=== PATIENT | female | born 1960 | race Caucasian/White ===

== ENCOUNTER 2023-01-14 06:19 | Observation (INO) ==
--- NOTE | 2022-12-16 14:20 | PAT Medication Instructions ---
Medication Instructions Date of Service December 16, 2022 Home Medications amlodipine 2.5 mg tablet 2.5 mg PO QAM amlodipine 5 mg tablet 5 mg PO QAM capsaicin 0.1 % topical cream 1 applic topical TID PRN Skin Irritation clotrimazole 1 % topical cream 1 applic topical BID PRN Skin Irritation d-mannose 500 mg capsule 1,000 mg PO QAM d-mannose 500 mg capsule 500 mg PO QPM diclofenac sodium 1 % topical gel 2 g topical TID PRN Pain fluticasone propionate 50 mcg/actuation nasal spray,suspension 1 spray intranasal BID levothyroxine 150 mcg tablet 150 mcg PO DAILYBB lorazepam 1 mg tablet 0.5 mg PO QAM lorazepam 1 mg tablet 1 mg PO QPM losartan 100 mg tablet 100 mg PO QAM omeprazole 20 mg capsule,delayed release 20 mg PO QAM sennosides 8.6 mg-docusate sodium 50 mg tablet 2 tab-cap PO BID sertraline 100 mg tablet 100 mg PO QPM tramadol 50 mg tablet 50 mg PO DAILY PRN Pain Continue as directed capsaicin 0.1 % topical cream 1 applic topical TID PRN Skin Irritation (do not use AM of surgery or on surgical area after cleansing) clotrimazole 1 % topical cream 1 applic topical BID PRN Skin Irritation (do not use AM of surgery or on surgical area after cleansing) diclofenac sodium 1 % topical gel 2 g topical TID PRN Pain (do not use AM of surgery or on surgical area after cleansing) DO NOT take the morning of surgery losartan 100 mg tablet 100 mg PO QAM d-mannose 500 mg capsule 1,000 mg PO QAM sennosides 8.6 mg-docusate sodium 50 mg tablet 2 tab-cap PO BID Take morning of surgery With a small sip of water, OTHERWISE NOTHING TO EAT OR DRINK AFTER MIDNIGHT: amlodipine 2.5 mg tablet 2.5 mg PO QAM amlodipine 5 mg tablet 5 mg PO QAM tramadol 50 mg tablet 50 mg PO DAILY PRN Pain (if needed) levothyroxine 150 mcg tablet 150 mcg PO DAILY lorazepam 1 mg tablet 0.5 mg PO QAM omeprazole 20 mg capsule,delayed release 20 mg PO QAM fluticasone propionate 50 mcg/actuation nasal spray,suspension 1 spray intranasal BID Take evening before surgery sertraline 100 mg tablet 100 mg PO QPM lorazepam 1 mg tablet 1 mg PO QPM d-mannose 500 mg capsule 500 mg PO QPM tramadol 50 mg tablet 50 mg PO DAILY PRN Pain (if needed) fluticasone propionate 50 mcg/actuation nasal spray,suspension 1 spray intranasal BID Other Notes If you have any questions please call us at [phone] or [phone] or [phone] or [phone]
--- NOTE | 2022-12-23 13:33 | Anesthesiology Consultation ---
Date of Service December 23, 2022 Assessment & Plan (1) Encounter for pre-operative examination: - awaiting PCP clearance. - occasional non-productive cough since COVID 09/2022. Pt also reports chronic dysphagia and occasional choking. Pt reports upcoming PCP pre-op appointment. Optimization note completed. COVID PCR test 12/23/22 positive, pt will not need tested am DOS unless she develops symptoms or has known COVID exposure. Pt aware. - Outpatient joint assessment: Patient is currently scheduled for inpatient pathway. If re-evaluated pending system levels during current pandemic/surgeon requests outpatient pathway, patient is not recommended candidate for outpatient joint program from anesthesia standpoint. Chart Review Chart Review: Pending: Refer to Additional Notes / Consult section and Patient seen in Pre Admission Testing Teaching & Discussion Pre-Anesthesia Teaching/Discussion Notes: Instructed NPO after midnight before surgery, except medications with 15 cc of water. Medication instructions provided according to the PAT guidelines. History Surgery Operation Date: 01/14/23 07:00 Proposed Procedures p Right Total Knee Arthroplasty - George Garcia MD Height/Weight Height: 5 ft 6 in Weight: 142.882 kg Allergies Allergy/AdvReac Type Severity Reaction Status Date / Time ciprofloxacin [From Cipro] Allergy Severe n/v Verified 12/13/22 10:38 nitrofurantoin Allergy Mild n/v Verified 12/13/22 10:38 Sulfa (Sulfonamide Allergy Mild Hives Verified 12/13/22 10:38 Antibiotics) sulfamethoxazole [Bactrim] Allergy Mild Hives Verified 12/13/22 10:38 trimethoprim Allergy Mild Hives Verified 12/13/22 10:38 Bactrim Allergy Unknown . Verified 11/27/12 20:06 Medications Home Medications Medication Instructions Recorded Confirmed Last Taken amlodipine 2.5 mg tablet 2.5 mg PO QAM 12/13/22 12/13/22 Unknown amlodipine 5 mg tablet 5 mg PO QAM 12/13/22 12/13/22 Unknown capsaicin 0.1 % topical cream 1 applic topical TID PRN Skin 12/13/22 12/13/22 Unknown Irritation clotrimazole 1 % topical cream 1 applic topical BID PRN Skin 12/13/22 12/13/22 Unknown Irritation d-mannose 500 mg capsule 1,000 mg PO QAM 12/13/22 12/13/22 Unknown d-mannose 500 mg capsule 500 mg PO QPM 12/13/22 12/13/22 Unknown diclofenac sodium 1 % topical gel 2 g topical TID PRN Pain 12/13/22 12/13/22 Unknown fluticasone propionate 50 1 spray intranasal BID 12/13/22 12/13/22 Unknown mcg/actuation nasal spray,suspension levothyroxine 150 mcg tablet 150 mcg PO DAILYBB 12/13/22 12/13/22 Unknown lorazepam 1 mg tablet 0.5 mg PO QAM 12/13/22 12/13/22 Unknown lorazepam 1 mg tablet 1 mg PO QPM 12/13/22 12/13/22 Unknown losartan 100 mg tablet 100 mg PO QAM 12/13/22 12/13/22 Unknown omeprazole 20 mg capsule,delayed 20 mg PO QAM 12/13/22 12/13/22 Unknown release sennosides 8.6 mg-docusate sodium 2 tab-cap PO BID 12/13/22 12/13/22 Unknown 50 mg tablet sertraline 100 mg tablet 100 mg PO QPM 12/13/22 12/13/22 Unknown tramadol 50 mg tablet 50 mg PO DAILY PRN Pain 12/13/22 12/13/22 Unknown Past Medical History Medical History (Updated 12/23/22 @ 13:37 by Katya Briscoe PA-C) Anxiety Borderline diabetes monitoring Chronic kidney disease stage 3A Constipation due to slow transit Depression Dysphagia occasional - no surgical intervention-occ choking Fatty liver GERD (gastroesophageal reflux disease) controlled, stable per pt Hiatal hernia History of COVID-19 10/20/22 (home test positive) - sinus congestion/fever/cough > symptoms resolved except occasional residual mild cough History of motion sickness Hx of hemorrhoids Hypertension controlled, stable per pt Hypothyroidism Sinus bradycardia hx while sleeping (found during a hospital stay) Patient denies h/o stroke, seizures, heart attack, heart failure, blood clots or blood transfusions. Exercise / Class Metabolic Activity III < 4 Walking/Shop/Light housework (denies chest discomfort or shortness of breath with usual activities) Past Family History Family History Brother FHx: colon cancer, Onset Age: 50 Mother FHx: uterine cancer, Onset Age: 30 FHx: leukemia FHx: rheumatoid arthritis Other No family history of adverse response to anesthesia Past Surgical History Surgical History (Updated 12/23/22 @ 13:38 by Katya Briscoe PA-C) History of cholecystectomy History of colonoscopy History of endometrial biopsy with sedation (benign) History of esophagogastroduodenoscopy (EGD) Nausea and vomiting after administration of anesthetic agent denies needing scop patch Past Anesthesia History No Hx of Anesthesia Complications and No Family Hx of Anesthesia Complications History of PONV History of PONV (denies needing scop patch) and Hx of Motion Sickness Social History Smoking Status: Never smoker Do You Dip or Chew Tobacco: No Hx Alcohol Use: No Hx Substance Use: No substance use type: does not use Review of Systems Snoring, denies witnessed apneas. Patient denies chest pain, shortness of breath, dyspnea on exertion, fever, chills, cough, wheezing, or palpitations. Physical Exam Vital Signs Vitals BP 140/92 P 76 TEMP 97.9 SP02 96% on RA RESP 17 Physical Full cervical extension range of motion without pain TMD 3.5 finger breadths Mallampati Score 2 Dentition: intact, denies Lungs: normal respiratory effort. Clear throughout to auscultation, no adventitious breath sounds Cardiac: regular rate and rhythm, no murmurs noted Carotid arteries: negative bruit bilat Lab Results Anesthesia Preop Results Results Anesthesia Widget: WBC 8.52 K/ul (4.8-10.8) 12/23/22 Hgb 13.4 g/dl (12.0-16.0) 12/23/22 Hct 41.2 % (37.0-47.0) 12/23/22 Plt 233 K/uL (130-400) 12/23/22 Na 142 mmol/L (136-145) 12/23/22 K 4.2 mmol/L (3.5-5.1) 12/23/22 Cl 108 mmol/L (98-107) H 12/23/22 CO2 29 mmol/L (21-32) 12/23/22 BUN 20 mg/dl (6-23) 12/23/22 Creat 0.98 mg/dl (0.6-1.2) 12/23/22 Glucose Level 105 mg/dl (70-99(Fasting)) H 12/23/22 PT 10.2 Seconds (9.0-12.0) 12/23/22 PTT 28.4 Seconds (21.0-31.0) 12/23/22 INR 1.0 (0.9-1.1) 12/23/22 HA1c 5.7 % (4.5-5.6) H 12/23/22 COVID-19 PCR POSITIVE (Negative) A* 12/23/22 Blood Type B Positive 12/23/22 Antibody Screen NEGATIVE 12/23/22 Testing Electrocardiogram Date: 12/23/22 NSR, rate [address] abnormality Chest X-Ray Date: 12/23/22 Moderate enlargement of the cardiac silhouette. No pneumothorax, large pleural effusion, airspace consolidation or overt pulmonary edema. Mild subsegmental bibasilar atelectasis. Degenerative changes of the shoulders and spine. IMPRESSION: No acute process. Echocardiogram Date: 06/24/18 EF 65-69% Moderate cLVH No LV segmental wall motion abnormalities Grade II diastolic dysfunction LA moderately enlarged RA mildly enlarged COVID-19 Risk Screen Screening Information COVID-19 Screen Date: 12/23/22 Exposure 21 Days Family/Household +COVID Last 21 Days: No Exposure 10 Days Any COVID Exposure Last 10 Days: No Symptoms Last 10 Days Experienced COVID Sx Last 10 Days: No + COVID 0-90 Days COVID + in Last 0-90 Days: Yes + COVID Test 0-10 Day: Yes +Covid 0-90 Day Pathway: Validate type of COVID-19 test (must secure test results for patient chart) * The patients test result MUST be a NAAT (i.e., molecular test not an antigen test). * NO other COVID-19 testing needed pre-op or day of surgery inside the 90 day window if prior positive test is acceptable per hospital Policy. Note: Home tests or antigen tests are NOT accepted per hospital policy. Provider to place an order for a ASHLEY (i.e., molecular test not an antigen test). Then proceed to the appropriate pathway based on the testing results. Elective Case +COVID-19 in the last 0-10 Days * Cancel/reschedule using Policy 1096. * Reschedule procedure 11 days if asymptomatic. * Reschedule procedure 15 days if mild symptoms. * Reschedule procedure 21 days if moderate to severe symptoms. Elective Case +COVID-19 in the last 11-90 Days * Proceed with procedure according to Policy 1096 * Reschedule procedure 11 days if asymptomatic. * Reschedule procedure 15 days if mild symptoms. * Reschedule procedure 21 days if moderate to severe symptoms. Urgent or Emergent Case * Provider will provide medical necessity statement in the H&P and patient will be scheduled on the (+) COVID/PUI pathway per hospital policy. Policies and Procedures Refer to Policy and Procedure 1096 for Initiation & Discontinuation of Transmission-Based Precautions for Confirmed and Suspected SARS-CoV-2 Infection which can be found on the Intranet in the Clinical Resources Manual by clicking on the link below: [email or web address] [email or web address]#search=discontinuation%20of%20Transmission%2D Based
--- NOTE | 2023-01-10 18:31 | History and Physical Report ---
DATE OF ADMISSION: 01/14/2023 CHIEF COMPLAINT: Bilateral knee pain and discomfort, right side greater than left. HISTORY OF PRESENT ILLNESS: The patient is a 62-year-old female who presents for surgical treatment of her right knee. She has a long history of bilateral knee pain and discomfort that has gradually g henri worse over time. It has been treated at [facility] with cortisone shots, which helped initially , but became less successful over time. She had a gel shot, which did not help at all. She tried cr yoablation at the [facility], which also did not help. Pain has gradually gotten worse ov er time. She resorted to using a cane to get around. She would now like to proceed with surgical tr eatment. She has attempted weight loss without much success. PAST MEDICAL HISTORY: 1. Prediabetes with an A1c of 5.7. 2. Hypothyroidism. 3. Depression. 4. Hypertension. 5. Obesity with BMI of 54.4. PAST SURGICAL HISTORY: Includes cholecystectomy. ALLERGIES: SULFA. CURRENT MEDICATIONS: 1. Lorazepam. 2. Fluticasone. 3. Zantac. 4. Sertraline. 5. Norvasc. 6. Omeprazole. 7. Losartan. 8. Diclofenac. 9. Levothyroxine. 10. Viactiv. SOCIAL HISTORY: A 62-year-old female. She is . She is from [place]. Does not smoke. FAMILY HISTORY: Significant for heart disease, blood clots, colon cancer, uterine cancer, leukemia, lung cancer. REVIEW OF SYSTEMS: Significant for obesity. No current chest pain or shortness of breath. No histo ry of DVT or PE. No known bleeding problems. PHYSICAL EXAMINATION: GENERAL: Shows a pleasant, large female. HEENT: Benign. NECK: Supple. No lymphadenopathy. LUNGS: Clear to auscultation. HEART: Regular rate and rhythm. ABDOMEN: Soft, nontender, nondistended. EXTREMITIES: Grossly neurovascularly intact except as follows: Examination of both knees revealed patient ambulates with use of a cane. Examination of the right knee reveals a large soft tissue envelope. She has got varus alignment to h er knee. Range of motion is 5-10 degrees short of full extension and 105 degrees of flexion. No ins tability. No pain with hip motion. Examination of the left knee reveals varus alignment. Large soft tissue envelope. Small knee effusi on. Range of motion 5-120. No instability. X-RAYS: X-rays of both knees were reviewed. X-rays show advanced bilateral knee DJD. She has compl ete loss of her medial joint space. She has got subchondral sclerosis and cystic changes primarily m edially. Mild diffuse osteopenia ____ the left. ASSESSMENT: A 62-year-old female with multiple medical comorbidities including depression, hypertens ion, morbid obesity, hypothyroidism and prediabetes with advanced bilateral knee degenerative joint d isease. She has failed conservative measures. She has been attempting weight loss without much succ ess. PLAN: We are going to proceed with right knee replacement. Risks and benefits of this procedure wer e explained to the patient in depth, and she understands. She knows that at her weight, she is at in creased risk for infection, thrombosis, and failure of the implants as well as . The patient un derstands and would like to proceed. We are going to proceed with right knee replacement. We will probably put some degree of stem in he r tibia due to her large size and deformity to maximize her tibial fixation. Job ID: [id number]
[~2023-01-14 06:19] MED LIST: ACETAMINOPHEN 500 MG TAB PO SCH; ALLERGY Noted to ORDERED Medication SCH; BUPIVACAINE LIPOSOME/PF 266 MG, BUPIVACAINE/EPINEPHRINE 50 ML, SODIUM CHLORIDE 0.9% PF ... INFIL SCH; DEXAMETHASONE SOD INJ 4 MG/ML VIAL IV SCH; FAMOTIDINE 20 MG TAB PO SCH; LR 500ML BOLUS, THEN 15ML/HR IV SCH; LR 60ML/HR IV SCH; Scopolamine 1 MG TDSY TD SCH; TRANEXAMIC ACID 1,000 MG **IV Intra-op IV SCH
[2023-01-14] MEDS ORDERED: BUPIVACAINE 0.25% PF 30 ML VIAL ONE (06:33)
[2023-01-14] MEDS ORDERED: BUPIVACAINE 0.5 % 5 MG/1 ML PF 10ML VIAL ONE (06:33)
--- NOTE | 2023-01-14 06:58 | History & Physical Bridge Note ---
Date of Service January 14, 2023 History & Physical Bridge Note I have examined the patient, reviewed the History & Physical and in the interval since the performance of the History & Physical I have noted the following changes of clinical significance: no changes noted
[2023-01-14] MEDS ORDERED: KETAMINE 50 MG/5 ML SYRINGE ONE (08:12)
[2023-01-14] MEDS ORDERED: PROPOFOL IV EMULSION 10 MG/ML 100 ML VIAL IV ONE (08:12)
[2023-01-14] MEDS ORDERED: MIDAZOLAM HCL 1 MG/ML 2ML VIAL ONE (08:29)
[2023-01-14] MEDS ORDERED: VANCOMYCIN HCL 1000MG/20ML VIAL ONE (08:39)
[2023-01-14] MEDS ORDERED: BUPIVACAINE/EPINEPHRINE 0.25% 1:200,000 30 ML VIAL ONE (08:40)
[2023-01-14] MEDS ORDERED: BUPIVACAINE LIPOSOME 1.3% 266 MG/20 ML VIAL ONE (08:40)
[2023-01-14] MEDS ORDERED: SODIUM CHLORIDE 0.9% PF 50 ML VIAL ONE (08:41)
[2023-01-14] MEDS ORDERED: DEXAMETHASONE SOD INJ 4 MG/ML VIAL ONE (09:07)
--- NOTE | 2023-01-14 10:59 | Operative Report ---
PG Post Operative Report Pre & Post Diagnosis Operation Date: 01/14/23 08:50 Pre-Op Diagnosis: Right Knee Degenerative Joint Disease Post-Op Diagnosis: Right Knee Degenerative Joint Disease I identified the patient and participated in the time-out.: Yes Procedure Operation Date: 01/14/23 08:50 Actual Procedures p Right Total Knee Arthroplasty(Right) - George Garcia MD Surgeon George Garcia MD Textile Machine Operator Khadar Hammer PA-C Estimated Blood Loss 50 Findings Consistent with Post-Op Diagnosis Operative findings reveal advanced right knee DJD with extensive grade 4 [id number] disease of the anteromedial compartment and the patellofemoral compartments. The lateral compartment was pretty well spared. Moderate-sized joint effusion. Osteophytes primarily medially and in the patellofemoral compartment. Large soft tissue envelope. Specimens Right knee sent for pathology Anesthesia Type Spinal MAC Complications none Disposition Accompanied Patient To Recovery: No Indications Patient is a 62-year-old morbidly obese female whose had a several year history of increasing bilateral knee pain discomfort. She been through extensive conservative treatment which became less successful over time. X-rays show advanced bilateral knee arthritis. She elected proceed with total knee arthroplasty. Due to her large size and significant medial deformity we did place a cemented stem in the tibia. Description of Procedure Operative implants consist of: 1. Biomet Vanguard size 67.5 right posterior stabilized femoral component. 2. Biomet size 71 tibial tray with a cemented 12.5 mm x 80 mm stem. 3. 10 mm posterior stabilized polyethylene insert. 4. 31 mm all poly patella. The patient was taken the operating, identified, and placed on the operating t able supine position protectors were properly padded. IV antibiotics tried by anesthesia team. A spinal anesthetic and abductor canal block had been provided in the holding area. Navarro catheter was placed in sterile fashion. Right thigh tent was then placed in the right lower extremities then prepped and draped in usual sterile fashion. The right leg was elevated exsanguinated with use of an Esmarch and the tourniquet placed at 300 mmHg. An anterior pressure of the right knee was then performed to longitudinal incision centered over the patella. Sharp dissection was carried through subcutaneous tissue down the extensor mechanism. A medial parapatellar arthrotomy incision was made. Some subperiosteal dissection was carried out medially. Fat pad was resected from Neath patella tendon. The lateral patellofemoral ligament was released. Patella subluxated laterally and the knee was flexed. The osteophytes taken off distal femur. The ACL and PCL were then released from distal femur the tibia subluxated anteriorly. The tibia was then entered after shaving the intercondylar eminence off with a saw. The canal finder was placed. I then used the long IM kelton to place down the tibia. The IM cutting guide was placed to take 2 mm off the most deficient aspect medial tibial plateau. The tibia was then sized to a size 71. Was prepared for a 12.5 mm stem. We did overreamed this to allow for cement mantle. The trial tibial tray was assembled and placed and fit nicely. Attention drawn to the femur. The distal femur was entered with a sharp drop with intramedullary canal was suction. A right 5 degree valgus cutting guide was placed. Distal femoral cutting block was pinned in place. Distal femoral cut was made to take an additional 3 mm bone off distal femur. The femur was then sized to a size 67.5. The AP cutting block was pinned parallel to the epicondylar axis which was 4 degrees of external rotation. Anterior cut, anterior chamfer, posterior cut, posterior chamfer cuts were made. The box cutting guide was placed in just slight lateral and the box cut was made. The knee was flexed. The remnants of the medial and lateral menisci were excised. The osteophytes were taken off the posterior aspect the femur. Trial femoral component was placed for the tibial tray was already in place. I then trialed the knee and the 10 mm insert fit most appropriately. Attention drawn the patella. The patella was cleaned of all soft tissues. Patella thickness measured 22 mm in thickness and was cut down to 13. It was sized to a size 31 patella. The lug holes were drilled for 31 patella. Lateral osteophytes removed. Patella button was placed. Knee was taken through range of motion patella tracked nicely with no thumbs test. Attention drawn to placing permanent components. All trial components were removed. Bone plug was placed into the distal femur limit blood loss. Double batch Palacos G cement was mixed. I did add an additional gram of vancomycin due to her large size/BMI and history of diabetes. A Biomet Indiceeguard size 67.5 right posterior stabilized femoral component, a size 71 tray with a 12.5 mm x 80 mm stem, a 10 mm posterior stabilized polyethylene insert, and a 31 x 8 all Paller patella then cemented in place. Knee was brought out in full extension till cement hardened. Final cement check was then performed. The pericapsular tissues were injected with total 100 cc of combination of 20 cc of Exparel, 30 cc normal saline, 50 cc of quarter percent Marcaine with epinephrine. Patient did receive 1 g tranexamic acid. The tourniquet was then let down for final turn time 65 minutes. Hemostasis assured with electrocautery. Extensor mechanism closed with combination 1 PDS suture #1 Vicryl suture in a [id number] fashion. Extensor mechanism checked found be intact with subcutaneous tissue then closed with 2 Dexon suture in buried interrupted fashion skin was closed skin vincenzo. Leg was then cleaned and dried and sterile dressed with Xeroform, 4 fours, sterile cast padding, Jose bandage were applied. Patient then transferred to the recovery room in stable condition. Patient tolerated procedure well and there were no complications. Khadar Hammer, my physician mortgage loan assistant, was present for the entire procedure. His assistance was essential and required for appropriate patient positioning, prepping and draping, surgical exposure, performing the technical details of the operation, placement the implants, closure of the wound, and placement of the sterile bandage. I attest to the content of the Intraoperative Record and any orders documented therein. Any exceptions are noted below.
--- NOTE | 2023-01-14 11:22 | XRay Report ---
XR knee RT 1 or 2V routine HISTORY: 62 years-old Female Surgical Post Op right knee arthroplasty COMPARISON: Knee radiographs 12/09/2022 TECHNIQUE: 2 views of the right knee FINDINGS: Total joint arthroplasty with patellar resurfacing. Anterior midline skin vincenzo are noted along wit h expected postoperative soft tissue swelling with deep tissue air. No acute fracture or unexpected o paque foreign body. IMPRESSION: Total joint arthroplasty with expected postoperative changes. ACT 112: Negative or not required by law. The above report was generated using voice recognition software. It may contain grammatical, syntax o r spelling errors. Electronically signed by: Marcos Arita M.D. 01/14/2023 11:21 AM
[2023-01-14] MEDS ORDERED: ATROPINE SULFATE 0.1 MG/ML 10ML SYR IV PRN (11:25)
[2023-01-14] MEDS ORDERED: ePHEDrine sulfate 50 MG/ML AMP IV PRN (11:25)
[2023-01-14] MEDS ORDERED: COUGH DROP (SUGAR FREE) LOZ 24 LOZ/1 BOX BUCCAL STA (12:23)
[2023-01-14] MEDS ORDERED: fentaNYL citrate PF 100 MCG/2 ML VIAL ONE (12:34)
[2023-01-14] MEDS: fentaNYL citrate PF 100 MCG/2 ML VIAL IV PRN ×4 (12:35→13:35)
[2023-01-14] MEDS ORDERED: NALOXONE HCL 0.4 MG/1 ML VIAL/CARP IV PRN (12:53)
[2023-01-14] MEDS ORDERED: METOCLOPRAMIDE HCL INJ 5 MG/ML 2 ML VIAL IV PRN (12:53)
[2023-01-14] MEDS ORDERED: ONDANSETRON INJ 2 MG/ML 2 ML VIAL IV PRN (12:53)
[2023-01-14] MEDS ORDERED: ALUMINUM/MAGNESIUM SUSP 30 ML UDC PO PRN (12:53)
[2023-01-14] MEDS ORDERED: GLUCOSE 40% GEL 15 GM TUBE PO PRN (12:53)
[2023-01-14] MEDS ORDERED: DEXTROSE 50% 50 ML SYRINGE IV PRN (12:53)
[2023-01-14] MEDS ORDERED: HYDROmorphone INJ 0.5 MG/0.5 ML SYR IV PRN (12:53)
[2023-01-14] MEDS ORDERED: CLOTRIMAZOLE 1% CR 15 GM TUBE TOP PRN (12:53)
[2023-01-14] MEDS ORDERED: GLUCOSE 10 TAB/TUBE PO PRN (12:53)
[2023-01-14] MEDS ORDERED: GLUCAGON FOR INJ 1 MG VIAL SQ PRN (12:53)
[2023-01-14] MEDS ORDERED: MAGNESIUM HYDROXIDE SUSP 30 ML UDC PO PRN (12:53)
[2023-01-14] MEDS ORDERED: PHARMACY GLYCEMIC MGMT CONSULT PRN (12:53)
[2023-01-14] MEDS ORDERED: CARBOHYDRATES FOR HYPOGLYCEMIA PO PRN (12:53)
[2023-01-14] MEDS ORDERED: bisacodyL 10 MG SUPP PR PRN (12:53)
[2023-01-14] MEDS ORDERED: CAPSAICIN CR 0.075% 60 GM TUBE EXT PRN (13:21)
--- NOTE | 2023-01-14 13:23 | Pharmacy Report ---
Pharmacy Glycemic Short Note 2 - Date of Service January 14, 2023 - Glycemic Short BSG Results (Last 24 hours): 01/14/23 11:02 POC Glucose 157 H OUTPATIENT ANTIDIABETIC REGIMEN: * n/a * A1c 5.7% ASSESSMENT: * 62 year old female s/p R TKA, A1c suggestive of pre-diabetes. Received preop IV steroids - will trial novolog for now weight based stress of 2. Will add overnight checks PLAN FOR INPATIENT GLYCEMIC CONTROL: * Hold outpatient oral diabetes medications * Basal insulin * Lantus - 0-10 units at HS if BSG elevated * Bolus insulin * NovoLog per scale ACHS or Q6hrs while NPO * Goal Range: Low 110 mg/dL - High 140 mg/dL * Correction Factor: 20 mg/dL/unit * Nutritional / Prandial insulin per carb ratio of 1 unit per 7 grams CHO consumed
[2023-01-14] MEDS: HYDROmorphone INJ 1 MG/ML SYRINGE IV PRN ×2 (13:40→13:45)
--- NOTE | 2023-01-14 14:42 | Anesthesiology Progress Note ---
Date of Service January 14, 2023 Anesthesia Post Procedure Vital Signs Vital Signs: Temp Pulse Resp BP Pulse Ox O2 Del Method O2 Flow Rate 01/14/23 14:15 36.4 C L 79 16 151/84 H 94 Nasal Cannula 2 01/14/23 13:15 80 16 166/86 H 92 Nasal Cannula 2 01/14/23 12:45 81 15 170/89 H 93 Nasal Cannula 2 01/14/23 12:30 85 17 147/88 H 95 Room Air 01/14/23 12:15 82 17 154/69 H 95 Room Air 01/14/23 12:00 78 17 157/69 H 93 Room Air 01/14/23 11:45 80 17 162/80 H 95 Room Air 01/14/23 11:35 81 17 154/77 H 95 Room Air 01/14/23 11:25 36.9 C 86 17 150/78 H 95 Room Air 01/14/23 11:15 90 18 157/79 H 95 Room Air 01/14/23 11:05 93 H 17 151/73 H 99 Oxymask 5 01/14/23 10:59 37.2 C 100 H 17 132/71 99 Oxymask 5 01/14/23 07:05 Room Air 01/14/23 07:05 36.6 C 87 18 169/95 H 94 Room Air Pain Intensity Right Knee: Pain Intensity: 4 Transfer of Care Handoff Completed per policy Notes Mental Status: alert / awake / arousable and participated in evaluation Patient Amnestic to Procedure: Yes Nausea / Vomiting: adequately controlled Pain: adequately controlled Airway Patency, RR, SpO2: stable & adequate BP & HR: stable & adequate Hydration State: stable & adequate Neuraxial Anesthesia: was administered and sensory block is resolving Anesthetic Complications: no major complications apparent and Pt Satisfied with anesthetic care
[2023-01-14] MEDS: SODIUM CHLORIDE 0.9% 1000ML 1,000 ML IV SCH (15:06)
[2023-01-14] MEDS: INSULIN ASPART PER UNIT CHARGE SC SCH ×3 (15:08→20:57)
[2023-01-14] MEDS: KETOROLAC 30 MG/ML VIAL IV SCH ×2 (15:37→20:17)
[2023-01-14] MEDS: Scopolamine CHECK PATCH PLACEMENT SCH (15:37)
[2023-01-14] MEDS: ACETAMINOPHEN 500 MG TAB PO SCH ×2 (15:37→20:17)
[2023-01-14] MEDS: oxyCODONE HCL IR 5 MG TAB (IMMEDIATE RELEASE) PO PRN ×2 (16:01→22:05)
[2023-01-14] MEDS: ASCORBIC ACID 500 MG TAB PO SCH (16:03)
[2023-01-14] MEDS: ceFAZolin 2000MG 2,000 MG/15 ML SYR IV SCH (16:16)
[2023-01-14] MEDS ORDERED: TRANEXAMIC ACID / 0.7% NACL 1,000 MG/100 ML BAG IV SCH (17:00)
[2023-01-14] MEDS: DOCUSATE SODIUM 100 MG CAP PO SCH (20:17)
[2023-01-14] MEDS: ASPIRIN 81 MG ECTAB PO SCH (20:17)
[2023-01-14] MEDS: FLUTICASONE PROPIONATE NA SPR 16 GM BTL NAE SCH (20:18)
[2023-01-14] MEDS: DOCUSATE SODIUM/SENNA 50/8.6MG TAB PO SCH (21:00)
[2023-01-14] MEDS ORDERED: LANTUS PER UNIT CHARGE SC SCH (21:00)
[2023-01-14] MEDS ORDERED: SENNA 8.6 MG TAB PO SCH (21:00)
[2023-01-14] MEDS ORDERED: LORazepam 1 MG TAB PO SCH (21:00)
[2023-01-14] MEDS ORDERED: SERTRALINE HCL 100 MG TABLET PO SCH (21:00)
[2023-01-14] MEDS ORDERED: NON-FORMULARY MEDICATION (D-Mannose 500 mg Capsule) PO SCH (21:00)
[2023-01-15] MEDS: SODIUM CHLORIDE 0.9% 1000ML 1,000 ML IV SCH (00:05)
[2023-01-15] MEDS: Scopolamine CHECK PATCH PLACEMENT SCH ×2 (00:05→08:46)
[2023-01-15] MEDS: INSULIN ASPART PER UNIT CHARGE SC SCH ×4 (00:10→12:36)
[2023-01-15] MEDS: ceFAZolin 2000MG 2,000 MG/15 ML SYR IV SCH (01:15)
[2023-01-15] MEDS: KETOROLAC 30 MG/ML VIAL IV SCH ×2 (01:15→07:23)
[2023-01-15] MEDS: oxyCODONE HCL IR 5 MG TAB (IMMEDIATE RELEASE) PO PRN ×2 (06:24→12:43)
[2023-01-15] MEDS ORDERED: LEVOTHYROXINE SODIUM 150 MCG TABLET PO SCH (06:30)
[2023-01-15] MEDS ORDERED: dexAMETHasone 10 MG in SYRINGE 0 ML IV SCH (08:00)
[2023-01-15] MEDS: ACETAMINOPHEN 500 MG TAB PO SCH ×2 (08:45→14:44)
[2023-01-15] MEDS: ASCORBIC ACID 500 MG TAB PO SCH (08:45)
[2023-01-15] MEDS: DOCUSATE SODIUM/SENNA 50/8.6MG TAB PO SCH (08:47)
[2023-01-15] MEDS: ASPIRIN 81 MG ECTAB PO SCH (08:48)
[2023-01-15] MEDS: FLUTICASONE PROPIONATE NA SPR 16 GM BTL NAE SCH (08:48)
[2023-01-15] MEDS: DOCUSATE SODIUM 100 MG CAP PO SCH (08:49)
[2023-01-15] MEDS ORDERED: PANTOprazole 40 MG TAB PO SCH (09:00)
[2023-01-15] MEDS ORDERED: MULTIVITAMIN TAB PO SCH (09:00)
[2023-01-15] MEDS ORDERED: LORazepam 0.5 MG TAB PO SCH (09:00)
[2023-01-15] MEDS ORDERED: NON-FORMULARY MEDICATION (D-Mannose 500 mg Capsule) PO SCH (09:00)
[2023-01-15] MEDS ORDERED: amLODIPine BESYLATE 5 MG TAB PO SCH ×2 (09:00)
[2023-01-15] MEDS ORDERED: LOSARTAN POTASSIUM 50 MG TAB PO SCH (09:00)
[2023-01-15 09:22] LABS: Hematocrit (blood only) 39.2 % (37.0-47.0); Hemoglobin 12.9 g/dl (12.0-16.0); Mean Corpuscular Hemoglobin 27.8 pg (25.0-34.0); Mean Corpuscular Hgb Conc 32.9 g/dL (32.0-36.0); Mean Corpuscular Volume 84.5 fL (80.0-100.0); Mean Platelet Volume 9.4 fL (9.4-12.4); Platelet Count 256 K/uL (130-400); RDW Coefficient of Variation 15.2 % (11.5-14.5); RDW Standard Deviation 46.1 fL (36.4-46.3); Red Blood Count 4.64 M/uL (4.20-5.40); White Blood Count 12.92 K/ul (4.8-10.8)
[2023-01-15 09:33] LABS: BUN Creatinine Ratio 18.2 (10-20); Creatinine Clr Calc Pharmacy 85.2 ml/min; Est GFR (African American) 69.8 ml/min; Est GFR (Non-African American) 60.2 ml/min; Potassium 3.5 mmol/L (3.5-5.1)
--- NOTE | 2023-01-15 14:33 | Progress Notes ---
DATE OF SERVICE: 01/15/2023. SUBJECTIVE: A 62-year-old female postoperative day 1 from a right knee replacement. She is doing qu ite well. Pain is controlled. Therapy went well. No chest pain or shortness of breath. Not feelin g dizzy or lightheaded. Hoping to go home. OBJECTIVE: VITAL SIGNS: Temperature 37.0. Vital signs are stable. GENERAL: Shows a pleasant middle-aged female. She is sitting on her bedside and looks quite comfort able. LUNGS: Clear to auscultation. HEART: Has a regular rate and rhythm. ABDOMEN: Soft, nontender, nondistended. EXTREMITIES: Grossly neurovascularly intact except as follows. Examination of the right leg reveals the dressing to be clean, dry and intact. She can dorsiflex and plantarflex her foot appropriately. She can do a straight leg raise. LABORATORY DATA: Hemoglobin 12.9. Hematocrit 39.2. Electrolytes are stable. ASSESSMENT: A 62-year-old female postoperative day 1 from right knee replacement, doing pretty well. Pain is controlled. She is neurologically intact. PLAN: 1. DVT prophylaxis includes thigh-high TEDs, SCDs, and aspirin twice a day. 2. PT/OT, weightbear as tolerated. Right total knee protocol. 3. Pain control, doing okay with current pain regimen. 4. Disposition: Plan to discharge to home with some home health likely later today. Job ID: [id number]
--- NOTE | 2023-01-20 13:18 | Discharge Summary ---
Date of Service January 20, 2023 Discharge Data Procedures Performed Operation Date: 01/14/23 08:50 Actual Procedures p Right Total Knee Arthroplasty(Right) - George Garcia MD Hospital Course (1) Status post total right knee replacement: This is a 62 year old patient admitted on 01/14/23 and underwent total knee arthroplasty. She tolerated the procedure well and there were no complications. Transferred to the PACU post op and later to the orthopedic floor for further care. She was given ancef for antibiotic prophylaxis. She was also given ONUR stockings, SCDs, and aspirin for DVT prophylaxis. Hemoglobin, hematocrit, and vital signs were monitored during her hospital stay and remained stable. Did not require any blood transfusions. There were no complications during her hospital stay. By post op day #1 the patient was tolerating a diabetic diet, pain was reasonably controlled with oral pain medicine, and she was participating in physical therapy. On post op day #1 the patient was discharged home and set up with home health care. She was given printed discharge instructions including prescriptions for extra strength tylenol, aspirin, cefadroxil, ketorolac, zofran, senokot, and oxycodone. Continue physical therapy, weight bearing as tolerated. Continue ONUR stockings. Follow up approximately 2 weeks post op or sooner if there are problems or concerns. Coding Level of Care Code None Diagnoses Status post total right knee replacement Z96.651
== END 2023-01-15 15:32 | disposition home health service (06) ==
LOC: PACUINP 06:19 → ASU 06:19 → 3E 14:51

== ENCOUNTER 2023-07-15 06:41 | Observation (INO) ==
--- NOTE | 2023-07-08 12:54 | Anesthesiology Consultation ---
Date of Service July 08, 2023 Assessment & Plan (1) Encounter for pre-operative examination: Plan - Per pricing director on 07/08/2023: congestion and runny nose, Rx antibiotic by urgent care 06/25/23 for acute maxillary sinusitis with symptom improvement. I called patient and she states that postnasal drip and occasional nonproductive cough persist but are improving each day; denies shortness of breath, chest discomfort, wheezing, pharyngitis, fever, chills, nausea, vomiting or fatigue. She was advised to call PAT or surgeon's office if symptoms do not resolve by day before surgery. She verbalized full understanding and agreement, denied questions or concerns. -medical clearance 12/31/22 [facility]: "...clearance for right total knee replacement...[facility] [place]...recent surgery with INNERSOLE FITTER, patient states she became hypoxic during procedure. Oxygen saturations were in the high 80-90s...patient cleared for procedure, low risk. Reviewed labs, EKG as well as chest x-ray report...Hypoxia: unclear etiology with regards to most recent procedure. Saxena spect that patient may be having episodes of bronchospasm, recommend use of albuterol inhaler prior to her next surgery. Advised that patietn advise anesthesia of previous problems therefore may benefit from intraoperative nebulizer if needed..." - Outpatient joint assessment: Patient is currently scheduled for inpatient pathway. If re-evaluated pending system levels during current pandemic/surgeon requests outpatient pathway, patient is not recommended candidate for outpatient joint program from anesthesia standpoint. Chart Review Chart Review: Acceptable Risk for Surgery and Patient NOT seen in Pre Admission Testing History Surgery Operation Date: 07/15/23 12:55 Proposed Procedures p Left Total Knee Arthroplasty - George Garcia MD Height/Weight Height: 5 ft 6 in Weight: 145.15 kg Allergies Allergy/AdvReac Type Severity Reaction Status Date / Time ciprofloxacin [From Cipro] Allergy Severe n/v Verified 07/08/23 12:13 nitrofurantoin Allergy Mild n/v Verified 07/08/23 12:13 Sulfa (Sulfonamide Allergy Mild Hives Verified 07/08/23 12:13 Antibiotics) sulfamethoxazole [Bactrim] Allergy Mild Hives Verified 07/08/23 12:13 trimethoprim Allergy Mild Hives Verified 07/08/23 12:13 Bactrim Allergy Unknown . Verified 11/27/12 20:06 Medications Home Medications Medication Instructions Recorded Confirmed Last Taken capsaicin 0.1 % topical cream 1 applic topical TID PRN Skin 12/13/22 07/08/23 11/27/22 08:00 Irritation clotrimazole 1 % topical cream 1 applic topical BID PRN Skin 12/13/22 07/08/23 11/27/22 08:00 Irritation d-mannose 500 mg capsule 1,000 mg PO QAM 12/13/22 07/08/23 01/13/23 08:00 d-mannose 500 mg capsule 500 mg PO QPM 12/13/22 07/08/23 01/13/23 17:00 fluticasone propionate 50 1 spray intranasal BID PRN 12/13/22 07/08/23 01/14/23 05:30 mcg/actuation nasal Congestion spray,suspension levothyroxine 150 mcg tablet 150 mcg PO QAM 12/13/22 07/08/23 01/14/23 05:30 lorazepam 1 mg tablet 0.5 mg PO QAM 12/13/22 07/08/23 01/14/23 05:30 lorazepam 1 mg tablet 1 mg PO QPM 12/13/22 07/08/23 01/13/23 20:00 losartan 100 mg tablet 100 mg PO QAM 12/13/22 07/08/23 01/13/23 08:00 omeprazole 20 mg capsule,delayed 20 mg PO QAM 12/13/22 07/08/23 01/14/23 05:30 release sennosides 8.6 mg-docusate sodium 2 tab-cap PO BID 12/13/22 07/08/23 01/13/23 18:00 50 mg tablet sertraline 100 mg tablet 100 mg PO QPM 12/13/22 07/08/23 01/13/23 20:00 albuterol sulfate 90 mcg/actuation 2 puff inhalation Q4H PRN 07/08/23 07/08/23 Unknown aerosol inhaler Shortness Of Breath amlodipine 10 mg tablet 10 mg PO QAM 07/08/23 07/08/23 Unknown amoxicillin 500 mg tablet 2,000 mg PO ONCE PRN dental 07/08/23 07/08/23 Unknown procedures celecoxib 100 mg capsule (Celebrex) 100 mg PO QAM 07/08/23 07/08/23 Unknown fexofenadine 180 mg tablet 180 mg PO DAILY 07/08/23 07/08/23 Unknown furosemide 20 mg tablet 20 mg PO QAM 07/08/23 07/08/23 Unknown Past Medical History Medical History Anxiety Borderline diabetes monitoring Chronic kidney disease stage 3A Constipation due to slow transit Depression Dysphagia occasional - no surgical intervention-occ choking Fatty liver GERD (gastroesophageal reflux disease) controlled, stable per pt Hiatal hernia History of COVID-19 10/20/22 (home test positive) - sinus congestion/fever/cough > symptoms resolved except occasional residual mild cough History of motion sickness Hx of hemorrhoids Hypertension controlled, stable per pt Hypothyroidism Sinus bradycardia hx while sleeping (found during a hospital stay) Past Family History Family History Brother FHx: colon cancer, Onset Age: 50 Mother FHx: uterine cancer, Onset Age: 30 FHx: leukemia FHx: rheumatoid arthritis Other No family history of adverse response to anesthesia Past Surgical History Surgical History (Updated 07/08/23 @ 12:49 by Katya Briscoe PA-C) History of cholecystectomy History of colonoscopy History of endometrial biopsy with sedation (benign) History of esophagogastroduodenoscopy (EGD) History of total right knee replacement SAB L3-L4 1 attempt + PNB. Nausea and vomiting after administration of anesthetic agent denies needing scop patch Social History Smoking Status: Never smoker Do You Dip or Chew Tobacco: No Hx Alcohol Use: No Hx Substance Use: No substance use type: does not use Lab Results Anesthesia Preop Results Results Anesthesia Widget: WBC 7.81 K/ul (4.8-10.8) 06/24/23 Hgb 13.0 g/dl (12.0-16.0) 06/24/23 Hct 41.9 % (37.0-47.0) 06/24/23 Plt 240 K/uL (130-400) 06/24/23 Na 141 mmol/L (136-145) 06/24/23 K 3.6 mmol/L (3.5-5.1) 06/24/23 Cl 104 mmol/L (98-107) 06/24/23 CO2 30 mmol/L (21-32) 06/24/23 BUN 17 mg/dl (6-23) 06/24/23 Creat 0.90 mg/dl (0.6-1.2) 06/24/23 Glucose Level 100 mg/dl (70-99(Fasting)) H 06/24/23 PT 10.5 Seconds (9.0-12.0) 06/24/23 PTT 29.3 Seconds (21.0-31.0) 06/24/23 INR 1.0 (0.9-1.1) 06/24/23 HA1c 5.9 % (4.5-5.6) H 06/24/23 Blood Type B Positive 06/24/23 Antibody Screen NEGATIVE 06/24/23 Testing Electrocardiogram Date: 12/23/22 NSR, rate [address] abnormality Chest X-Ray Date: 12/23/22 Moderate enlargement of the cardiac silhouette. No pneumothorax, large pleural effusion, airspace consolidation or overt pulmonary edema. Mild subsegmental bibasilar atelectasis. Degenerative changes of the shoulders and spine. IMPRESSION: No acute process. Echocardiogram Date: 06/24/18 EF 65-69% Moderate cLVH No LV segmental wall motion abnormalities Grade II diastolic dysfunction LA moderately enlarged RA mildly enlarged Other Testing Urine culture 05/28/23 No significant growth
--- NOTE | 2023-07-12 08:18 | History & Physical Report ---
Date of Service July 12, 2023 Assessment & Plan (1) Degenerative arthritis of knee, bilateral: 63-year-old female with a significant underlying obesity, prediabetes, hypertension, hypothyroidism now 6 months out from right knee replacement with advanced left knee DJD. She done well from the right side and would like to have her left knee replaced. We will plan on taken to the operating room do a left total knee replacement. The risks Mente this procedure explained the patient include but not limited to DVT PE infection neurological injury vascular bleeding palm pain limb range of motion if this fairly of her symptoms incomplete relief of symptoms etc. The patient understands and desires to proceed informed consent is obtained. We put a cemented stem in her last knee due to her large size and osteopenia. We will likely do the same thing this time. She is planning on being discharged to home do outpatient therapy at [facility]. DVT prophylaxis will be aspirin twice a day. (2) Status post total right knee replacement: History of Present Illness Chief Complaint: . Persistent left knee pain and discomfort. Primary Care Provider: Kayleigh Garrido MD . Patient is 63-year-old female who now presents for surgical treatment of her left knee. She is about 6 months out from a right knee replacement which is done pretty well. First couple weeks were rough but doing much better now. Happy with this knee. She continues to be bothered by left knee pain and discomfort. Ovidio longstanding disease with has been managed through conservative care primarily at [facility].Cortisone shots and gel shots which would become less successful over time. He is actually continued to have have to use a cane in order to get around her knee pain. She now would like to have her knee fixed. Allergies Allergy/AdvReac Type Severity Reaction Status Date / Time ciprofloxacin [From Cipro] Allergy Severe n/v Verified 07/08/23 12:13 nitrofurantoin Allergy Mild n/v Verified 07/08/23 12:13 Sulfa (Sulfonamide Allergy Mild Hives Verified 07/08/23 12:13 Antibiotics) sulfamethoxazole [Bactrim] Allergy Mild Hives Verified 07/08/23 12:13 trimethoprim Allergy Mild Hives Verified 07/08/23 12:13 Bactrim Allergy Unknown . Verified 11/27/12 20:06 Home Medications Medication Instructions Recorded Confirmed Type capsaicin 0.1 % topical cream 1 applic topical TID PRN Skin 03/17/23 10/10/23 History Irritation clotrimazole 1 % topical cream 1 applic topical BID PRN Skin 12/13/22 07/08/23 History Irritation d-mannose 500 mg capsule 1,000 mg PO QAM 12/13/22 07/08/23 History d-mannose 500 mg capsule 500 mg PO QPM 12/13/22 07/08/23 History fluticasone propionate 50 1 spray intranasal BID PRN 12/13/22 07/08/23 History mcg/actuation nasal Congestion spray,suspension levothyroxine 150 mcg tablet 150 mcg PO QAM 12/13/22 07/08/23 History lorazepam 1 mg tablet 0.5 mg PO QAM 12/13/22 07/08/23 History lorazepam 1 mg tablet 1 mg PO QPM 12/13/22 07/08/23 History losartan 100 mg tablet 100 mg PO QAM 12/13/22 07/08/23 History omeprazole 20 mg capsule,delayed 20 mg PO QAM 12/13/22 07/08/23 History release sennosides 8.6 mg-docusate sodium 2 tab-cap PO BID 12/13/22 07/08/23 History 50 mg tablet sertraline 100 mg tablet 100 mg PO QPM 12/13/22 07/08/23 History albuterol sulfate 90 mcg/actuation 2 puff inhalation Q4H PRN 07/08/23 07/08/23 History aerosol inhaler Shortness Of Breath amlodipine 10 mg tablet 10 mg PO QAM 07/08/23 07/08/23 History amoxicillin 500 mg tablet 2,000 mg PO ONCE PRN dental 07/08/23 07/08/23 History procedures celecoxib 100 mg capsule (Celebrex) 100 mg PO QAM 07/08/23 07/08/23 History fexofenadine 180 mg tablet 180 mg PO DAILY 07/08/23 07/08/23 History furosemide 20 mg tablet 20 mg PO QAM 07/08/23 07/08/23 History Past Med/Surg History Medical History Anxiety Borderline diabetes monitoring Chronic kidney disease stage 3A Constipation due to slow transit Depression Dysphagia occasional - no surgical intervention-occ choking Fatty liver GERD (gastroesophageal reflux disease) controlled, stable per pt Hiatal hernia History of COVID-19 10/20/22 (home test positive) - sinus congestion/fever/cough > symptoms resolved except occasional residual mild cough History of motion sickness Hx of hemorrhoids Hypertension controlled, stable per pt Hypothyroidism Sinus bradycardia hx while sleeping (found during a hospital stay) Surgical History History of cholecystectomy History of colonoscopy History of endometrial biopsy with sedation (benign) History of esophagogastroduodenoscopy (EGD) History of total right knee replacement SAB L3-L4 1 attempt + PNB. Nausea and vomiting after administration of anesthetic agent denies needing scop patch Family History Brother FHx: colon cancer, Onset Age: 50 Mother FHx: uterine cancer, Onset Age: 30 FHx: leukemia FHx: rheumatoid arthritis Other No family history of adverse response to anesthesia Social History Smoking Status: Never smoker Second Hand Exposure: Yes (hx used to smoke); Do You Dip or Chew Tobacco: No; Hx Alcohol Use: No Hx Substance Use: No Preferred Language: Yi Communication Ability: Effective [employer] Director Required: No Beliefs That Will Affect Care: None Current Living Situation: Spouse Feels Safe at Home: Yes Assistive Devices: Cane and Glasses Review of Systems All systems reviewed & are unremarkable except as noted in HPI & below. Physical Exam . Physical examination the left knee reveals a large soft tissue envelope. Got a small knee effusion. Slight varus alignment to her knee. She is tender over medial joint line. Range of motion 5-1 20. No instability. No pain with hip motion. Examination the right knee reveals a well-healed incision. Large soft tissue envelope. Range of motion 0-1 15. Good straight leg raise. Constitutional WD/WN, vitals as above Neck trachea midline, no thyromegaly Respiratory normal respiratory effort, lungs clear to auscultation Cardiovascular RRR, no murmur, no edema Gastrointestinal (Abdomen) normal bowel sounds, soft, nontender, no hepatosplenomegaly Results & Data Results & Data Laboratory Results . Diagnostic Findings . X-rays of the left knee were reviewed. Shows advanced medial compartment arthritis Feese complete loss of medial joint space. She got some chondral sclerosis. The right knee replaced looks to be in good position without signs of problems. PG Care Time/CCT Total # of Minutes Spent Total Time Spent with Patient: Total time spent is greater than 50% in coordination of care (as documented) at patient's floor/unit and/or counseling patient: Coding Level of Care Code None Diagnoses Degenerative arthritis of knee, bilateral M17.0 Status post total right knee replacement Z96.651
[~2023-07-15 06:41] MED LIST changes: -ALLERGY Noted to ORDERED Medication SCH; +CeleBREX 200 MG CAP PO SCH; -DEXAMETHASONE SOD INJ 4 MG/ML VIAL IV SCH; +METOCLOPRAMIDE HCL 10 MG TABLET PO SCH
--- NOTE | 2023-07-15 06:55 | History & Physical Bridge Note ---
Date of Service July 15, 2023 History & Physical Bridge Note I have examined the patient, reviewed the History & Physical and in the interval since the performance of the History & Physical I have noted the following changes of clinical significance: no changes noted
[2023-07-15] MEDS ORDERED: BUPIVACAINE 0.5 % 5 MG/1 ML PF 10ML VIAL ONE (07:37)
[2023-07-15] MEDS ORDERED: ROPIVACAINE 0.5% 5 MG/ML 30 ML VIAL ONE (07:37)
[2023-07-15] MEDS ORDERED: ATROPINE SULFATE 0.1 MG/ML 10ML SYR IV PRN (07:42)
[2023-07-15] MEDS ORDERED: ONDANSETRON INJ 2 MG/ML 2 ML VIAL IV PRN ×2 (07:42→13:13)
[2023-07-15] MEDS ORDERED: ePHEDrine sulfate 50 MG/ML AMP IV PRN (07:42)
[2023-07-15] MEDS ORDERED: MIDAZOLAM HCL 1 MG/ML 2ML VIAL ONE (08:10)
[2023-07-15] MEDS ORDERED: PROPOFOL IV EMULSION 10 MG/ML 100 ML VIAL IV ONE (08:45)
[2023-07-15] MEDS ORDERED: BUPIVACAINE/EPINEPHRINE 0.25% 1:200,000 30 ML VIAL ONE (08:46)
[2023-07-15] MEDS ORDERED: BUPIVACAINE LIPOSOME 1.3% 266 MG/20 ML VIAL ONE (08:46)
[2023-07-15] MEDS ORDERED: SODIUM CHLORIDE 0.9% PF 50 ML VIAL ONE (08:46)
[2023-07-15] MEDS ORDERED: VANCOMYCIN HCL 1000MG/20ML VIAL ONE (08:46)
[2023-07-15] MEDS ORDERED: GLYCOPYRROLATE 0.2 MG/ML VIAL ONE (09:19)
[2023-07-15] MEDS ORDERED: KETAMINE 50 MG/5 ML SYRINGE ONE (09:30)
--- NOTE | 2023-07-15 11:07 | Operative Report ---
PG Post Operative Report Pre & Post Diagnosis Operation Date: 07/15/23 08:50 Pre-Op Diagnosis: Left Knee Degenerative Joint Disease Post-Op Diagnosis: Left Knee Degenerative Joint Disease I identified the patient and participated in the time-out.: Yes Procedure Operation Date: 07/15/23 08:50 Actual Procedures p Left Total Knee Arthroplasty(Left) - George Garcia MD Surgeon George Garcia MD Hyster Driver Khadar Hammer PA-C Estimated Blood Loss 50 Findings Consistent with Post-Op Diagnosis Operative findings were advanced left knee DJD. She extensive grade 4 [id number] disease of the medial compartment. Slight varus deformity to her knee. Moderate-sized knee joint effusion. Large soft tissue envelope. Specimens Left knee sent for pathology Anesthesia Type Spinal MAC Complications none Indications Patient is a 63-year-old female with several year history of increasing bilateral knee pain discomfort that gradually got worse over time. She been through extensive conservative treatments became less successful as times gone on. She had a right knee replaced 6 months ago and is done well from this. She continued be limited by left knee pain discomfort. She elected proceed with left total knee arthroplasty. Due to her BMI of 54 and her osteopenic bone we did place a slightly longer cemented stem on the tibia to decrease the likelihood of loosening. Description of Procedure Operative implants consist of: 1. Biomet Vanguard size 67.5 left posterior stabilized femoral component. 2. Biomet size 71 nonmodular tibial tray with a 12.5 mm x 80 mm cemented stem extension. 3. 12 mm post stabilized polyethylene insert. 4. 31 x 8 all poly patella. The patient was taken the operating, identified, placed on the operating table supine position. All contact areas were appropriately padded. IV antibiotics arrived by anesthesia team. A spinal anesthetic and abductor canal block had provided in the holding area. Navarro catheter was placed in sterile fashion to the left thigh tent was then placed in the left lower extremities and prepped and draped in usual sterile fashion. The left leg was elevated exsanguinated with use of an Esmarch and the tourniquet was placed at 300 mmHg. An anterior approach the left knee was then performed to longitudinal incision centered over the patella. Sharp dissection was carried through subcutaneous tissue down the extensor mechanism. Medial p arapatellar arthrotomy incision was made. Some subperiosteal dissection was carried out medially. The fat pad was resected from Neath patella tendon. The lateral patellofemoral ligament was released. Patella subluxated laterally and the knee was flexed. The osteophytes taken on distal femur. The ACL and PCL were then released from distal femur the tibia subluxated anteriorly. The external tibial alignment jig was then placed in the interface the tibia and adjusted 14 mm medially. Proximal tibial cut was made remove about 1 to 2 mm of bone from the medial side. The tibia was sized to a size 71. Attention drawn the femur. The distal femur was then with a sharp drill. Intramedullary canal was suction placed. A right 5 degree valgus cutting guide was placed. Distal femoral cutting block was pinned in place. Distal femoral cut was made to take an additional 3 mm of bone off distal femur. The femur was then sized to a size 67.5. The AP cutting block was pinned parallel to the epicondylar axis which was 4 degrees of external rotation. The anterior cut, anterior chamfer, posterior cut, posterior chamfer cuts were made. The box cutting guide was placed in just slight lateral and the box cut was made. The knee was flexed. The remnants of the medial and lateral menisci were excised. The osteophytes taken off the posterior aspect the femur. A trial femoral component was placed. The tibial tray was then pinned in maximum external rotation. The drill and stem punch used to create defect in proximal tibia for the tibial tray. We then hand reamed up to a size 14 to allow for the stem extension. Trial implants were placed. I trialed the knee and the 12 insert fit most appropriately. Attention drawn the patella. The patella was cleaned of all soft tissues. Patella thickness measured 23 mm in thickness and was cut down to 14. Was sized to a size 31 patella. The lug holes were drilled for 31 patella. The lateral osteophytes removed. Patella button was placed. Knee was taken through range of motion patella tracked nicely with no thumbs test. Attention drawn to placing permanent components. All trial components were removed. Bone plug was placed in the distal femur limit blood loss. Double batch Palacos G cement was mixed. I did add an additional gram of vancomycin due to her morbid obesity and diabetes. A Biomet trinketguard size 67.5 left posterior stabilized femoral component, size 71 tibial tray with a 12.5 mm x 80 mm stem extension, a 12 mm pro stabilized polyethylene insert, and a 31 x 8 all poly patella were then cemented in place. The knee was brought out into full extension till cement hardened. Final cement check was then performed. Pericapsular tissues were injected with total 100 cc of combination of 20 cc of Exparel, 30 cc normal saline, 50 cc of quarter percent Marcaine with epinephrine. Patient did receive 1 g tranexamic acid. The tourniquet was then let down for final tourniquet time 63 minutes. Hemostasis assured use electrocautery. Extensor mechanism then closed with combination 1 PDS suture #1 Vicryl suture in a [id number] fashion. The extensor mechanism was checked found to be intact and subcutaneous tissues then closed with 2 Dexon suture in a buried interrupted fashion skin was closed skin vincenzo. Leg was then cleaned and dried and sterile dressing with Xeroform, 4 x 4's, sterile cast padding, Jose bandage were applied. Patient then transferred to the recovery room in stable condition. Patient tolerated procedure well and there were no complications. Khadar Hammer, my physician librarian assistant, was present for the entire procedure. His assistance was essential and required for appropriate patient positioning, prepping and draping, surgical exposure, performing the technical details of the operation, placement the implants, closure of the wound, and placement of the sterile bandage. I attest to the content of the Intraoperative Record and any orders documented therein. Any exceptions are noted below.
[2023-07-15] MEDS: fentaNYL citrate PF 100 MCG/2 ML VIAL IV PRN ×5 (11:17→11:54)
--- NOTE | 2023-07-15 11:27 | XRay Report ---
XR knee LT 1 or 2V routine HISTORY: 63 years-old Female Surgical Post Op left knee arthroplasty COMPARISON: 05/22/2023 TECHNIQUE: 2 views of the left knee FINDINGS: Total joint arthroplasty with patellar resurfacing. Anterior midline skin vincenzo with expected posto perative soft tissue swelling and deep tissue air. No acute fracture or unexpected opaque foreign bod y. IMPRESSION: Total joint arthroplasty with expected postoperative changes. ACT 112: Negative or not required by law. The above report was generated using voice recognition software. It may contain grammatical, syntax o r spelling errors. Electronically signed by: Marcos Arita M.D. 07/15/2023 11:25 AM
[2023-07-15] MEDS ORDERED: DEXTROSE 50% 50 ML SYRINGE IV PRN (13:13)
[2023-07-15] MEDS ORDERED: GLUCAGON FOR INJ 1 MG VIAL SQ PRN (13:13)
[2023-07-15] MEDS ORDERED: FLUTICASONE PROPIONATE NA SPR 16 GM BTL NAE PRN (13:13)
[2023-07-15] MEDS ORDERED: bisacodyL 10 MG SUPP PR PRN (13:13)
[2023-07-15] MEDS ORDERED: NON-FORMULARY MEDICATION (Amoxicillin 500 mg tablet) PO PRN (13:13)
[2023-07-15] MEDS ORDERED: METOCLOPRAMIDE HCL INJ 5 MG/ML 2 ML VIAL IV PRN (13:13)
[2023-07-15] MEDS ORDERED: HYDROmorphone INJ 0.5 MG/0.5 ML SYR IV PRN (13:13)
[2023-07-15] MEDS ORDERED: ALBUTEROL HFA 8 GM INHALER INH PRN (13:13)
[2023-07-15] MEDS ORDERED: CARBOHYDRATES FOR HYPOGLYCEMIA PO PRN (13:13)
[2023-07-15] MEDS ORDERED: MAGNESIUM HYDROXIDE SUSP 30 ML UDC PO PRN (13:13)
[2023-07-15] MEDS ORDERED: GLUCOSE 40% GEL 15 GM TUBE PO PRN (13:13)
[2023-07-15] MEDS ORDERED: CLOTRIMAZOLE 1% CR 15 GM TUBE TOP PRN (13:13)
[2023-07-15] MEDS ORDERED: ALUMINUM/MAGNESIUM SUSP 30 ML UDC PO PRN (13:13)
[2023-07-15] MEDS ORDERED: NALOXONE HCL 0.4 MG/1 ML VIAL/CARP IV PRN (13:13)
[2023-07-15] MEDS ORDERED: PHARMACY GLYCEMIC MGMT CONSULT PRN (13:13)
[2023-07-15] MEDS ORDERED: GLUCOSE 10 TAB/TUBE PO PRN (13:13)
[2023-07-15] MEDS ORDERED: ONDANSETRON 4 MG OD TAB PO PRN (13:13)
[2023-07-15] MEDS ORDERED: CAPSAICIN CR 0.075% 60 GM TUBE EXT PRN (13:34)
[2023-07-15] MEDS: oxyCODONE HCL IR 5 MG TAB (IMMEDIATE RELEASE) PO PRN (13:35)
--- NOTE | 2023-07-15 13:53 | Pharmacy Report ---
Pharmacy Glycemic Short Note 2 - Date of Service July 15, 2023 - Glycemic Short BSG Results (Last 24 hours): 07/15/23 13:32 POC Glucose 112 H OUTPATIENT ANTIDIABETIC REGIMEN: * N/A * HbA1C = 5.9% (06/24/23) ASSESSMENT: * Ms Hunter is a 63 y/o F with a PMH of "borderline T2DM" who presents for L TKA. * Patient received no steroids on POD 0 (today). There was no preop BSG but postop BSG was 112 mg/dL. * Will defer on basal insulin for today. On POD 1, dexamethasone 8 mg PO is ordered. Expect to consider NPH to cover effects from that. * Novolog weight-based stress of 2 for now (utilize adjusted body weight due to body habitus) PLAN FOR INPATIENT GLYCEMIC CONTROL: * Basal insulin * defer * Bolus insulin * NovoLog per scale ACHS or Q6hrs while NPO * Goal Range: Low 110 mg/dL - High 140 mg/dL * Correction Factor: 25 mg/dL/unit * Nutritional / Prandial insulin per carb ratio of 1 unit per 8 grams CHO consumed
[2023-07-15] MEDS: ACETAMINOPHEN 500 MG TAB PO SCH ×2 (14:09→19:33)
[2023-07-15] MEDS: SODIUM CHLORIDE 0.9% 1,000 ML IV SCH (14:09)
[2023-07-15] MEDS: KETOROLAC TROMETHAMINE 15 MG/ML VIAL IV SCH ×2 (14:09→19:29)
[2023-07-15] MEDS: INSULIN ASPART PER UNIT CHARGE SC SCH ×3 (14:11→21:39)
--- NOTE | 2023-07-15 14:13 | Anesthesiology Progress Note ---
Date of Service July 15, 2023 Anesthesia Post Procedure Vital Signs Vital Signs: Temp Pulse Pulse Resp BP Pulse Ox O2 Del Method 07/15/23 13:31 80 16 147/79 H 97 Room Air 07/15/23 13:10 98.2 F 82 16 149/80 H 95 Nasal Cannula 07/15/23 12:45 97.9 F 84 18 138/76 95 Nasal Cannula 07/15/23 12:30 82 18 146/73 H 94 Nasal Cannula 07/15/23 12:15 86 17 141/74 H 96 Nasal Cannula 07/15/23 12:05 86 20 147/73 H 93 Nasal Cannula 07/15/23 11:55 89 15 148/77 H 94 Nasal Cannula 07/15/23 11:45 98.4 F 91 H 17 137/77 95 Nasal Cannula 07/15/23 11:35 90 18 136/80 95 Nasal Cannula 07/15/23 11:25 97 H 23 147/78 H 93 Room Air 07/15/23 11:15 100 H 20 152/81 H 96 Oxymask 07/15/23 11:05 103 H 24 139/69 96 Oxymask 07/15/23 10:59 98.6 F 100 H 23 116/65 96 Oxymask 07/15/23 07:47 Room Air 07/15/23 07:05 98.1 F 92 H 22 180/94 H 95 Room Air O2 Flow Rate 07/15/23 13:31 07/15/23 13:10 2 07/15/23 12:45 2 07/15/23 12:30 2 07/15/23 12:15 2 07/15/23 12:05 2 07/15/23 11:55 2 07/15/23 11:45 2 07/15/23 11:35 2 07/15/23 11:25 07/15/23 11:15 12 07/15/23 11:05 12 07/15/23 10:59 12 07/15/23 07:47 07/15/23 07:05 Pain Intensity Left Knee: Pain Intensity: 3 Transfer of Care Handoff Completed per policy Notes Mental Status: alert / awake / arousable and participated in evaluation Patient Amnestic to Procedure: Yes Nausea / Vomiting: adequately controlled Pain: adequately controlled and improving with treatment Airway Patency, RR, SpO2: stable & adequate BP & HR: stable & adequate Hydration State: stable & adequate Neuraxial Anesthesia: was administered and sensory block is resolving Anesthetic Complications: no major complications apparent and Pt Satisfied with anesthetic care
[2023-07-15] MEDS: Scopolamine CHECK PATCH PLACEMENT SCH ×2 (16:11→23:59)
[2023-07-15] MEDS ORDERED: TRANEXAMIC ACID / 0.7% NACL 1,000 MG/100 ML BAG IV SCH (17:15)
[2023-07-15] MEDS: ASCORBIC ACID 500 MG TAB PO SCH (17:42)
[2023-07-15] MEDS: ceFAZolin 2000MG 2,000 MG/15 ML SYR IV SCH (17:45)
[2023-07-15] MEDS: SENNA 8.6 MG TAB PO SCH (19:35)
[2023-07-15] MEDS: DOCUSATE SODIUM/SENNA 50/8.6MG TAB PO SCH (19:36)
[2023-07-15] MEDS: DOCUSATE SODIUM 100 MG CAP PO SCH (19:36)
[2023-07-15] MEDS: ASPIRIN 81 MG ECTAB PO SCH (19:37)
[2023-07-15] MEDS ORDERED: NON-FORMULARY MEDICATION (D-Mannose 500 mg Capsule) PO SCH (21:00)
[2023-07-15] MEDS ORDERED: LORazepam 1 MG TAB PO SCH ×2 (21:00→21:45)
[2023-07-15] MEDS ORDERED: SENNA 8.6 MG TAB PO SCH (21:00)
[2023-07-15] MEDS ORDERED: SERTRALINE HCL 100 MG TABLET PO SCH (21:00)
[2023-07-16] MEDS: ceFAZolin 2000MG 2,000 MG/15 ML SYR IV SCH
[2023-07-16] MEDS: oxyCODONE HCL IR 5 MG TAB (IMMEDIATE RELEASE) PO PRN ×2 (03:34→08:37)
[2023-07-16] MEDS ORDERED: LEVOTHYROXINE SODIUM 150 MCG TABLET PO SCH (06:30)
[2023-07-16] MEDS: SODIUM CHLORIDE 0.9% 1,000 ML IV SCH (07:18)
[2023-07-16] MEDS: Scopolamine CHECK PATCH PLACEMENT SCH (07:35)
[2023-07-16] MEDS: KETOROLAC TROMETHAMINE 15 MG/ML VIAL IV SCH ×2 (07:35)
[2023-07-16] MEDS ORDERED: dexAMETHasone 4 MG TAB PO SCH (08:00)
[2023-07-16] MEDS: ASCORBIC ACID 500 MG TAB PO SCH (08:26)
[2023-07-16] MEDS: SENNA 8.6 MG TAB PO SCH (08:26)
[2023-07-16] MEDS: ACETAMINOPHEN 500 MG TAB PO SCH (08:27)
[2023-07-16] MEDS: ASPIRIN 81 MG ECTAB PO SCH (08:27)
[2023-07-16] MEDS: DOCUSATE SODIUM 100 MG CAP PO SCH (08:27)
[2023-07-16] MEDS: DOCUSATE SODIUM/SENNA 50/8.6MG TAB PO SCH (08:32)
[2023-07-16] MEDS: INSULIN ASPART PER UNIT CHARGE SC SCH (08:36)
[2023-07-16] MEDS ORDERED: NON-FORMULARY MEDICATION (D-Mannose 500 mg Capsule) PO SCH (09:00)
[2023-07-16] MEDS ORDERED: MULTIVITAMIN TAB PO SCH (09:00)
[2023-07-16] MEDS ORDERED: NovoLIN-N (NPH) PER UNIT CHARGE SQ ONE (09:00)
[2023-07-16] MEDS ORDERED: LOSARTAN POTASSIUM 50 MG TAB PO SCH (09:00)
[2023-07-16] MEDS ORDERED: PANTOprazole 40 MG TAB PO SCH (09:00)
[2023-07-16] MEDS ORDERED: FUROSEMIDE 20 MG TAB PO SCH (09:00)
[2023-07-16] MEDS ORDERED: FEXOFENADINE HCL 180 MG TAB PO SCH (09:00)
[2023-07-16] MEDS ORDERED: LORazepam 0.5 MG TAB PO SCH (09:00)
[2023-07-16] MEDS ORDERED: amLODIPine BESYLATE 5 MG TAB PO SCH (09:00)
[2023-07-16 09:19] LABS: Hematocrit (blood only) 39.6 % (37.0-47.0); Hemoglobin 13.3 g/dl (12.0-16.0); Mean Corpuscular Hemoglobin 27.2 pg (25.0-34.0); Mean Corpuscular Hgb Conc 33.6 g/dL (32.0-36.0); Mean Platelet Volume 8.9 fL (9.4-12.4); Platelet Count 236 K/uL (130-400); RDW Coefficient of Variation 15.8 % (11.5-14.5); RDW Standard Deviation 46.3 fL (36.4-46.3); Red Blood Count 4.89 M/uL (4.20-5.40); White Blood Count 12.97 K/ul (4.8-10.8)
[2023-07-16 09:45] LABS: BUN Creatinine Ratio 10.1 (10-20); Calcium 8.9 mg/dl (8.6-10.3); Creatinine Clr Calc Pharmacy 85.9 ml/min; Est GFR (African American) 69.3 ml/min; Est GFR (Non-African American) 59.8 ml/min; Potassium 3.8 mmol/L (3.5-5.1)
--- NOTE | 2023-07-16 15:14 | Surgery Progress Note ---
Date of Service July 16, 2023 Assessment & Plan (1) Status post left knee replacement: Plan: 63-year-old female postop day 1 from left knee replacement. She is company well. Mod amount of pain but nothing unexpected. Therapy went well. She is neurologically intact. Hoping to go home. Plan: 1. DVT prophylaxis including thigh-high teds, SCDs, aspirin twice a day. 2. PT OT weight-bear as tolerated left total knee protocol. 3. Pain control doing okay with current pain regimen. 4. Disposition plan to discharge to home. She is going to outpatient therapy at her request. Admission and Anticipated Discharge Date Admission Date: July 15, 2023 Subjective 63-year-old female postop day 1 from a left knee replacement. She is doing pretty well. She had moderate amount of pain overnight says his knees hurt more than the last one. No chest pain or shortness of breath. Therapy went pretty well. She is open to go home. Physical Exam Physical Exam: Physical examination was a pleasant middle-age female. As she is sitting up in her bed and looks pretty comfortable. Examination of left knee and leg reveals the dressing be clean dry and intact. She can dorsiflex and plantarflex her foot appropriately. She is neurologically intact. Respiratory: normal respiratory effort, lungs clear to auscultation Cardiovascular: RRR, no murmur, no edema Gastrointestinal (Abdomen): normal bowel sounds, soft, nontender, no hepatosplenomegaly Results & Data Vital Signs (Past 12 Hours) Vital Signs Temp Pulse Resp BP Pulse Ox O2 Del Method 07/16/23 07:50 Room Air 07/16/23 07:38 37.0 C 83 16 148/81 H 93 Room Air 07/16/23 03:38 36.6 C 76 18 152/85 H 96 Room Air Laboratory Results Labs hemoglobin is 13.3. Hematocrit 39.6. Electrolytes are stable. PG Care Time/CCT Total # of Minutes Spent Total Time Spent with Patient: Total time spent is greater than 50% in coordination of care (as documented) at patient's floor/unit and/or counseling patient: Coding Level of Care Code 91025 Post Operative Follow-Up Diagnoses Status post left knee replacement Z96.652
--- NOTE | 2023-07-19 16:12 | Discharge Summary ---
Date of Service July 19, 2023 Discharge Data Procedures Performed Operation Date: 07/15/23 08:50 Actual Procedures p Left Total Knee Arthroplasty(Left) - George Garcia MD Hospital Course (1) Status post left knee replacement: This is a 63 year old patient admitted on 07/15/23 and underwent total knee arthroplasty. She tolerated the procedure well and there were no complications. Transferred to the PACU post op and later to the orthopedic floor for further care. She was given ancef for antibiotic prophylaxis. She was also given ONUR stockings, SCDs, and aspirin for DVT prophylaxis. Hemoglobin, hematocrit, and vital signs were monitored during her hospital stay and remained stable. Did not require any blood transfusions. There were no complications during her hospital stay. By post op day #1 the patient was tolerating a diabetic diet, pain was reasonably controlled with oral pain medicine, and she was participating in physical therapy. On post op day #1 the patient was discharged home. She was given printed discharge instructions including prescriptions for extra strength tylenol, aspirin, cefadroxil, ketorolac, zofran, oxycodone, and senokot. Continue physical therapy, weight bearing as tolerated. Continue ONUR stockings. Follow up approximately 2 weeks post op or sooner if there are problems or concerns. Coding Level of Care Code None Diagnoses Status post left knee replacement Z96.652
== END 2023-07-16 13:02 | disposition home or self-care (01) ==
LOC: 3E 06:41 → ASU 06:41